=== PATIENT | male | born 1985 | race Two or more races ===

== ENCOUNTER 2017-08-04 20:27 | Emergency (ER) | payer SELFPAY ==
[2017-08-04] MEDS ORDERED: TETANUS AND DIPHTHERIA TOX/PF 0.5 ML DISP.SYRIN. VAX IM ONE (21:30)
[2017-08-04] MEDS ORDERED: oxyCODONE/APAP 5/325 1 TAB TABLET PO ONE (21:30)
[2017-08-04] MEDS ORDERED: LIDOCAINE 1%/EPI 1:100,000 20 ML VIAL. INJ ONE (21:30)
--- NOTE | 2017-08-04 21:31 | PHYS DOC ---
Past Medical History Past Medical History: No Pertinent History Past Surgical History: No Surgical History Alcohol Use: None Drug Use: None Adult General Chief Complaint Chief Complaint: TRAUMA ALERT HPI HPI Patient is a 32 year old handed male presents with laceration of the dorsum of his right palm. Patient cut his hand on a chain link fence prior to ED arrival. Tetanus status is unknown. Patient is and primarily non-Slovak speaking. No other injuries or pain complaints. [] Review of Systems Review of Systems Review symptoms as per history of present illness. [] All other systems were reviewed and found to be within normal limits, except as documented in this note. Current Medications Current Medications Current Medications Medications (Trade) Dose Ordered Sig/Timi Start Time Stop Time Status Last Admin Dose Admin Cephalexin HCl (Keflex) 500 mg 1X ONCE 08/04/17 23:30 12 23:31 Lidocaine/ Epinephrine (Xylocaine 1%-Epi 1:100,000) 20 ml 1X ONCE 08/04/17 21:30 08/04/17 21:31 DC 08/04/17 21:28 20 ML Oxycodone/ Acetaminophen (Percocet 5/325) 1 tab 1X ONCE 08/04/17 21:30 12 21:31 DC 08/04/17 21:26 1 TAB Tetanus/ Diphtheria Toxoids (Tenivac Syringe) 0.5 ml ONCE ONCE 08/04/17 21:30 08/04/17 21:31 DC 08/04/17 21:28 0.5 ML Allergies Allergies Allergies Coded Allergies Type Severity Reaction Last Updated Verified No Known Drug Allergies 08/04/17 No Physical Exam Physical Exam Constitutional: Well developed, well nourished, moderate discomfort secondary to pain. [] HENT: Normocephalic, atraumatic, bilateral external ears normal, oropharynx moist, no oral exudates, nose normal. []s. [] Extremities: Right hand, full thickness 6 cm laceration extending from third webspace proximally over mid palm, bleeding controlled, no obvious foreign body. [] Neurologic: Right upper hand, no loss of motor function or sensation. [] Current Patient Data Vital Signs Vital Signs Date Time Temp Pulse Resp B/P (MAP) Pulse Ox O2 Delivery O2 Flow Rate FiO2 08/04/17 21:36 68 25 113/68 (83) 98 Room Air 08/04/17 20:36 98.7 98.7 EKG EKG [] Radiology/Procedures Radiology/Procedures [ XR Right hand: No foreign bodies on preliminary ED read] Laceration repair procedure note: Dorsum of the patient's and was widely prepped, approximately 5 ML's of 1% lidocaine with epinephrine was injected into the margins of the laceration over the dorsum of the hand. Wound was copiously irrigated with high pressure normal saline, explored. No foreign body identified, wound is clean. Small pulsatile arterial bleed noted proximally on wound tied off with #1 5-0, Vicryl figure-of- eight suture with bleeding controlled. Wound was then closed superficially with #10, 5-0 simple interrupted Ethilon sutures. Tetanus was updated first dose of antibiotics were given in the emergency department. In Course & Med Decision Making Course & Med Decision Making Pertinent Labs and Imaging studies reviewed. (See chart for details) [In depth wound care instructions were given with instructions to follow-up with PCP or return to the ED in 2-3 days for wound reevaluation. Patient verbalizes understanding agreement with discharge instructions.] Dragon Disclaimer Dragon Disclaimer This electronic medical record was generated, in whole or in part, using a voice recognition dictation system. Departure Departure Impression: Primary Impression: Laceration of right hand Disposition: HOME, SELF-CARE Condition: GOOD Referrals: NO PCP (PCP) TORIN HAMLIN DO Aug 04, 2017 21:31
[2017-08-04 22:59] VITALS: BP 127/58
[2017-08-04] MEDS ORDERED: CEPHALEXIN 250 MG CAPSULE. PO ONE (23:30)
--- NOTE | 2017-08-05 08:12 | RAD ---
Right hand, 3 views, 08/04/2017: History: Trauma, laceration There is an old healed fracture of the fourth metacarpal shaft. No acute fracture or dislocation is identified. IMPRESSION: No acute bony abnormality is detected.
== END 2017-08-04 23:11 | disposition home or self-care (01) ==
LOC: ER 20:27
DX: S61.411A Laceration without foreign body of right hand, initial encounter (principal); W45.8XXA Other foreign body or object entering through skin, initial encounter; Y93.89 Activity, other specified; Y99.8 Other external cause status; Y92.89 Other specified places as the place of occurrence of the external cause
CPT/HCPCS: 12002; 73130; 90471; 90714; 99284; J3490

== ENCOUNTER 2022-01-18 19:17 | Emergency (ER) | payer SELFPAY ==
[~2022-01-18] VITALS: Ht 152.4 cm; Wt 54.5 kg
[2022-01-18 20:19] VITALS: BP 110/67
[2022-01-18] MEDS: DIPHTH,PERTUSS(ACELL),TET TOX 0.5 ML DISP.SYRIN. VAX IM ONE (22:00)
[2022-01-18] MEDS ORDERED: IBUP-1007 PO (23:09)
[2022-01-18] MEDS ORDERED: CEPH500C PO (23:09)
--- NOTE | 2022-01-18 23:10 | PHYS DOC ---
Past Medical History Past Medical History: No Pertinent History Past Surgical History: No Surgical History Smoking Status: Never Smoker Alcohol Use: None Drug Use: None General Adult EDM: Chief Complaint: FINGER INJURY HPI: HPI: Patient is a 36 year old male who presents with states he was eating chicken and a chicken bone splinter went through the bottom of his left ring finger and he cannot see it under the nail. Patient does need a tetanus shot. He states this happened yesterday. No signs of infection and there is nothing that can be visibly pulled. I do not see where the puncture site is. Denies other history. Rates his pain a 6 out of 10. Review of Systems: Review of Systems: Constitutional: Denies fever or chills. [] Eyes: Denies change in visual acuity. [] HENT: Denies nasal congestion or sore throat. [] Respiratory: Denies cough or shortness of breath. [] Cardiovascular: Denies chest pain or edema. [] GI: Denies abdominal pain, nausea, vomiting, bloody stools or diarrhea. [] : Denies dysuria. [] Musculoskeletal: Denies back pain or joint pain. + Left fourth finger pain [] Integument: Denies rash. [] Neurologic: Denies headache, focal weakness or sensory changes. [] Endocrine: Denies polyuria or polydipsia. [] Lymphatic: Denies swollen glands. [] Psychiatric: Denies depression or anxiety. [] Heart Score: C/O Chest Pain: No Current Medications: Current Medications Medications (Trade) Dose Ordered Sig/Timi Start Time Stop Time Status Last Admin Dose Admin Diphtheria/ Tetanus/Acell Pertussis (Boostrix) 0.5 ml ONCE ONCE 01/18/22 22:00 01/18/22 22:01 DC Allergies: Allergies: Allergies Coded Allergies Type Severity Reaction Last Updated Verified No Known Drug Allergies 08/04/17 No Physical Exam: PE: Constitutional: Well developed, well nourished, no acute distress, non-toxic appearance. [] HENT: Normocephalic, atraumatic, bilateral external ears normal, oropharynx moist, no oral exudates, nose normal. [] Eyes: PERRLA, EOMI, conjunctiva normal, no discharge. [] Neck: Normal range of motion, no tenderness, supple, no stridor. [] Cardiovascular:Heart rate regular rhythm, no murmur [] Lungs & Thorax: Bilateral breath sounds clear to auscultation [] Abdomen: Bowel sounds normal, soft, no tenderness, no masses, no pulsatile masses. [] Skin: Warm, dry, no erythema, no rash. Left 4 finger nail nail intact but there looks to be a part of a foreign object that he can see through the top of the nail. There is no exit or entry point of this foreign body. [] Back: No tenderness, no CVA tenderness. [] Extremities: Fourth finger tenderness tenderness, no cyanosis, no clubbing, ROM intact, no edema. [] Neurologic: Alert and oriented X 3, normal motor function, normal sensory function, no focal deficits noted. [] Psychologic: Affect normal, judgement normal, mood normal. [] Current Patient Data: Vital Signs: Vital Signs Date Time Temp Pulse Resp B/P (MAP) Pulse Ox O2 Delivery O2 Flow Rate FiO2 01/18/22 20:19 98.1 69 16 110/67 (81) 96 Room Air 98.1 EKG: EKG: [] Radiology/Procedures: Radiology/Procedures: [] Course & Med Decision Making: Course & Med Decision Making Pertinent Labs and Imaging studies reviewed. (See chart for details) See HPI. Alert and oriented x4. Ambulatory steady gait. Skin pink warm and dry. Radial pulse strong present. Cap refill less than 2 seconds. Nail intact. There looks to be a small pinpoint area of blood under the nail but not sure that I see any foreign body. There is no entrance or exit point. There is no part of the foreign body that is sticking out of the finger. Full range of motion of the finger. I went over care plan for this patient with Dr Jacobsen who states patient needs to follow up with a primary care physician and to give antibiotics. x ray read by Dr Jacobsen as a small foreign body in the finger. [] Dragon Disclaimer: Dragtanesha Disclaimer: This electronic medical record was generated, in whole or in part, using a voice recognition dictation system. Departure Departure Impression: Primary Impression: Foreign body (FB) in soft tissue Disposition: HOME / SELF CARE / HOMELESS Condition: STABLE Referrals: NO PCP (PCP) Patient Instructions: Foreign Body Additional Instructions: Take medication as prescribed and with food. Follow-up with a primary care provider this coming week. Take ibuprofen for pain. Watch for increased swelling, redness and severe pain. Scripts Ibuprofen (IBUPROFEN) 600 Mg Tablet 600 MG PO PRN Q6HRS PRN for INFLAMMATION, #20 TAB Prov: HUBER PATEL APRN 01/18/22 Cephalexin (KEFLEX) 500 Mg Capsule 1 CAP PO QID, #40 CAP Prov: HUBER PATEL APRN 01/18/22 HUBER PATEL APRN January 18, 2022 23:10
--- NOTE | 2022-01-19 00:14 | RAD ---
Exam: Left finger 3 views INDICATION: Ring finger pain, possible foreign body, pain TECHNIQUE: Frontal view of the left hand with oblique and lateral views of the fourth digit Comparisons: None FINDINGS: There is a 5 mm linear foreign body noted overlying the distal phalanx of the fourth digit. Bone mine ralization is normal. No acute or healed fractures. Joint spaces are well-maintained. IMPRESSION: 5 mm linear foreign body overlying the distal phalanx of the fourth digit. Electronically signed by: John Saleh MD (01/19/2022 12:12 AM) [facility]
== END 2022-01-18 23:40 | disposition home or self-care (01) ==
LOC: ER 19:17
DX: S60.455A Superficial foreign body of left ring finger, initial encounter (principal); X58.XXXA Exposure to other specified factors, initial encounter; Y93.89 Activity, other specified; Y92.89 Other specified places as the place of occurrence of the external cause; Y99.8 Other external cause status
CPT/HCPCS: 73140; 90471; 90715; 99283-25